=== PATIENT | male | born 1980 | race Two or more races ===

== ENCOUNTER 2020-05-19 09:26 | Emergency (ER) | payer MEDICAID ==
[~2020-05-19] VITALS: Ht 172.7 cm; Wt 83.9 kg
[2020-05-19 09:34] VITALS: BP 123/70
[2020-05-19] MEDS ORDERED: FLUORESCEIN SODIUM OPHTH 1 EA STRIP ONE (09:36)
--- NOTE | 2020-05-19 09:45 | NUR ---
AT BEDSIDE FOR EVAL.
--- NOTE | 2020-05-19 09:51 | NUR ---
Patient discharged to home in stable condition. Written and verbal after care instructions given. Patient verbalizes understanding of instruction.
== END 2020-05-19 09:53 | disposition home or self-care (01) ==
LOC: ER 09:31
DX: S05.01XA Injury of conjunctiva and corneal abrasion without foreign body, right eye, initial encounter (principal); X58.XXXA Exposure to other specified factors, initial encounter; Y93.89 Activity, other specified; Y92.89 Other specified places as the place of occurrence of the external cause; Y99.8 Other external cause status